=== PATIENT | female | born 1975 | race African-American/Black ===

== ENCOUNTER → 2016-08-24 | Outpatient (CLI) | payer OTHER | LOC: ULTRA 09:27 | DX: R10.11 Right upper quadrant pain (principal) ==

== ENCOUNTER → 2016-09-12 | Outpatient (CLI) | payer OTHER | LOC: RAD 15:12 | DX: Z12.31 Encounter for screening mammogram for malignant neoplasm of breast (principal) ==

== ENCOUNTER → 2016-09-14 | Outpatient (CLI) | payer OTHER | LOC: MRI 08:56 → ULTRA 09:49 | DX: N63 Unspecified lump in breast (principal) ==

== ENCOUNTER → 2021-07-28 | Outpatient (CLI) | payer OTHER | LOC: BC 09:51 | PROVIDERS: ATTEND Obstetrics & Gynecology | DX: Z12.31 Encounter for screening mammogram for malignant neoplasm of breast (principal); N64.89 Other specified disorders of breast ==